=== PATIENT | male | born 1980 | race Caucasian/White ===

== ENCOUNTER 2021-06-04 08:00 | Outpatient (CLI) | payer OTHER, SELFPAY ==
[2021-06-04 08:25] VITALS: BP 121/79; PULSE 65; RESP 18; TEMP 36.7; O2SAT 96; BMI 23.1
[2021-06-04 09:10] VITALS: BP 111/78; PULSE 55; RESP 17; O2SAT 99
[2021-06-04 10:20] VITALS: BP 108/74; PULSE 62; RESP 17; TEMP 36.6; O2SAT 99
== END 2021-06-04 08:01 | disposition home or self-care (01) ==
PROVIDERS: PCP Family Medicine; Visit Provider Obstetrics & Gynecology
DX: U07.1 COVID-19 (principal)
CPT/HCPCS: 96365

== ENCOUNTER 2025-01-27 07:20 | Day surgery (SDC) | payer OTHER, SELFPAY ==
[2025-01-27] VITALS (7 sets, daily range): BP systolic 113–212; BP diastolic 56–91; PULSE 50–64; RESP 16–18; TEMP 35.8–36.4; O2SAT 96–100; BMI 25.7
[2025-01-27] MEDS: sodium chloride 0.9% 1,000 ML 30 ML IV (07:55)
[2025-01-27] MEDS: acetaminophen 1,000 MG/100 ML PIGGYBACK 400 MG IV (07:55)
[2025-01-27] MEDS: gabapentin 300 mg Capsule PO (07:56)
--- NOTE | 2025-01-27 08:03 | ANES.PREANE2 ---
Pre-Anesthetic Assessment Height/Weight: Height 1.88 m Weight 90.718 kg O2 Del Method Room Air 01/27/25 07:37 Preop Diagnosis: Right foot fourth digit proximal phalanx fracture Operation Date: 01/27/25 08:50 Proposed Procedures p ORIF right fourth digit proximal phalanx fracture(Right) - Phil Malone DPM Familial anesthetic complications: None Was Beta Enedina taken within 24 hours: N/A Last intake: Intake Last Liquid Date 01/26/25 Last Liquid Time 20:00 Last Solid Date 01/26/25 Last Solid Time 20:00 Social No alcohol and No tobacco Exam alert, oriented x 3, clear to auscultation bilaterally and regular rate & rhythm Airway Dentition: chipped (Front tooth chipped and fixed) and other (missing) Anesthetic Plan ASA status: 1 Anesthesia: MAC Risk of > 500 ml blood loss (7ml/kg in children): No Medications/Allergies Home Medications ?Medication ?Instructions ?Recorded ?Confirmed ?Last Taken ?Type fluticasone propionate 50 1 spray intranasal DAILY 01/21/25 01/24/25 01/25/25 History mcg/actuation nasal spray,suspension (Flonase Allergy Relief) ibuprofen 200 mg tablet (Advil) 200 mg PO Q6H PRN Pain 01/21/25 01/24/25 01/25/25 History loratadine 10 mg chewable tablet 10 mg PO DAILY 01/21/25 01/24/25 01/25/25 History (Claritin) Allergies Allergy/AdvReac Type Severity Reaction Status Date / Time No Known Allergies Allergy Unverified 01/27/25 07:29 Current Medications Generic Name Dose Route Start Last Admin Trade Name Freq PRN Reason Stop Dose Admin Sodium Chloride 1,000 mls @ 30 mls/hr 01/27/25 08:00 01/27/25 07:55 Sodium Chloride 0.9% IV 01/28/25 07:59 30 mls/hr .Q24H LY Administration PFS Anesthesia Social History (Updated 01/24/25 @ 10:37 by Reanna Lloyd RN) Smoking and tobacco/nicotine status: never used tobacco/nicotine Second hand smoke exposure: No Alcohol intake: current Alcohol intake frequency: few times a week Alcohol type: beer Substance/Drug Use: never Lives independently: No Household members: spouse Marital status: Number of children: 4 Data Anesthesia Cardiac Studies: No Data to Display
--- NOTE | 2025-01-27 09:03 | W.PM.OPSUD ---
Surgery/Procedure H&P Update DATE OF PROCEDURE: January 27, 2025 DATE H&P PERFORMED: 01/21/25 PREOP DIAGNOSIS: Right foot fourth digit proximal phalanx fracture PLANNED PROCEDURE: Operation Date: 01/27/25 08:50 Proposed Procedures p ORIF right fourth digit proximal phalanx fracture(Right) - Phil Malone DPM
[2025-01-27] MEDS: ceFAZolin 2,000 mg SDV 2000 MG IVP (09:15)
[2025-01-27] MEDS: BUPivacaine 0.5% INJ 30 mL XX (09:24)
--- NOTE | 2025-01-27 09:43 | PM.OP ---
Operative Report Date of procedure: January 27, 2025 Surgeon: Phil Malone DPM Procedure: Date of procedure: 01/27/2025 Pre-op diagnosis: Right foot fourth digit proximal interphalangeal joint fracture dislocation Post-op diagnosis: Same Post-op findings: Fracture of the proximal phalanx right foot fourth digit with dislocation Procedure done: Closed reduction percutaneous pinning right foot fourth digit CPT 06169 Implants: 0.045 K wire Specimens removed: None Surgeon: Dr. Phil Malone DPM Pmp Certified Project Manager: Jose Estimated blood loss: 1 cc Tourniquet time: No tourniquet used Complications: None Patient is a 44-year-old male that has a history of right foot correction.. The patient has had the aforementioned chief complaint for some time. Conservative treatment measures have been attempted and the patient has opted for surgical intervention at this time. A lengthy discussion regarding the procedure, including risks and complications has been had with the patient and is noted in the recent clinic note. Written and verbal consent have been obtained. All patient questions have been answered to the patient?s satisfaction. No written or verbal guarantees have been given or implied. The patient has been NPO since midnight. The history has been reviewed and the history and physical is current. The signed consent was confirmed and placed in the patient chart. Patient imaging has been reviewed and is consistent with the diagnosis. Under mild sedation, the patient was brought into the operating room and placed on the table in the supine position. IV antibiotics were given by the anesthesia team as preoperative surgical prophylaxis. MAC sedation was then performed by the anesthesiateam. A local field block was performed using 0.5% Marcaine plain A pneumatic tourniquet was then placed about the right ankle but was not inflated.. The operative extremity was then prepped and draped in the usual fashion. After prep, the following procedure was performed. Attention was directed to the right foot. Under direct fluoroscopy visualization the right foot fourth digit proximal phalanx fracture was closed reduced to appropriate anatomic position. A 0.045 K wire was then driven into the distal aspect of the digit across the fracture site to maintain appropriate anatomic position. Good position of the wire was noted clinically as well as on C-arm imaging. 4 x 4 gauze Kerlix and Lele bandage were used to dress the right foot. Patient was placed into a cam boot. The patient tolerated the procedure and anesthesia well and without complication. The patient was transported from the operating room to the recovery room with vital signs stable and vascular status intact to all digits of the right foot. The patient was given both written and verbal instructions to remain weightbearing as tolerated in cam boot to the operative extremity, to keep dressings/splint clean, dry and intact and to take pain medication as directed. The patient will follow-up in the outpatient setting at their scheduled appointment. The patient was discharged with my personal number and was instructed to call if any questions or issues should arise. They were discharged home once anesthesia criteria was met.
--- NOTE | 2025-01-27 09:47 | P.BOP_ITS ---
Date of procedure: 01/27/2025 Pre-op diagnosis: Right foot fourth digit proximal interphalangeal joint fracture dislocation Post-op diagnosis: Same Post-op findings: Fracture of the proximal phalanx right foot fourth digit with dislocation Procedure done: Closed reduction percutaneous pinning right foot fourth digit Implants: 0.045 K wire Specimens removed: None Surgeon: Dr. Phil Malone DPM Medicare Compliance Auditor: Jose Estimated blood loss: 1 cc Tourniquet time: No tourniquet used Complications: None
--- NOTE | 2025-01-27 10:25 | ANE.PACU2 ---
Inpatient post-anesthesia follow up: Airway intact: Yes Vital signs: Temperature 96.5 F Pulse Rate 53 Respiratory Rate 16 Blood Pressure 212/89 Pulse Oximetry 100 Oxygen Delivery Me thod Room Air Oxygen Flow Rate Fraction of Inspir ed Oxygen Hydration adequate: Yes Nausea and vomiting: No Pain level: 1 Mental status: Baseline
--- NOTE | 2025-01-27 16:15 | XR_ITS ---
WS: [id number] C-ARM RADIOGRAPHS RIGHT TOE; 2 IMAGES HISTORY: ARELY PICS COMPARISON: None available. Intraoperative imaging during pinning of the fourth toe. XR/XR toe RT min 2V [id number] IMPRESSION: Intraoperative imaging pinning fourth toe.
== END 2025-01-27 10:27 | disposition home or self-care (01) ==
PROVIDERS: PCP Family Medicine; Visit Provider Podiatrist Foot & Ankle Surgery
PROC: (CPT 28515; principal; 2025-01-27 08:40)
DX: S92.511A Displaced fracture of proximal phalanx of right lesser toe(s), initial encounter for closed fracture (principal); W22.8XXA Striking against or struck by other objects, initial encounter
CPT/HCPCS: 28515; 28899; 73660; 76000; C1713; J0131; J0690; J1200; J2250; J2704; J3010; J3490; J7030; J9999

== ENCOUNTER → 2025-02-10 15:02 | Outpatient (BNVA) | payer OTHER, SELFPAY | PROVIDERS: PCP Family Medicine; Visit Provider Podiatrist Foot & Ankle Surgery | DX: M79.671 Pain in right foot (principal) | CPT/HCPCS: 73630 ==

== ENCOUNTER → 2025-02-25 16:03 | Outpatient (BNVA) | payer OTHER, SELFPAY | PROVIDERS: PCP Family Medicine; Visit Provider Podiatrist Foot & Ankle Surgery | DX: M79.671 Pain in right foot (principal); S92.514D Nondisplaced fracture of proximal phalanx of right lesser toe(s), subsequent encounter for fracture with routine healing; X58.XXXD Exposure to other specified factors, subsequent encounter | CPT/HCPCS: 73630 ==

== ENCOUNTER 2025-03-26 16:02 | Outpatient (CLI) | payer OTHER, SELFPAY ==
--- NOTE | 2025-03-26 16:06 | CTR_ITS ---
PROCEDURE INFORMATION: Exam: CT Abdomen And Pelvis Without Contrast Exam date and time: 03/26/2025 4:14 PM Age: 45 years old Clinical indication: Abdominal pain; Left upper quadrant (luq); Prior surgery; Surgery date: 6+ months; Surgery type: Kidney stone removal, patient doesn't remember what side; Left flank pain since about 3 yesterday; Additional info: Left flank pain, unspecified abdominal pain TECHNIQUE: Imaging protocol: Computed tomography of the abdomen and pelvis without contrast. Radiation optimization: All CT scans at this facility use at least one of these dose optimization techniques: automated exposure control; mA and/or kV adjustment per patient size (includes targeted exams where dose is matched to clinical indication); or iterative reconstruction. COMPARISON: No relevant prior studies available. RADIATION DOSE METRICS: Total DLP (mGy-cm): 492.37 FINDINGS: Liver: Normal. No mass. Gallbladder and biliary ducts: Normal. No calcified stones. No ductal dilation. Pancreas: Normal. No ductal dilation. Spleen: Normal. No splenomegaly. Adrenal glands: Normal. No mass. Kidneys and ureters: There is mild hydronephrosis on the left with a 5 mm proximal left ureteral calculus. Two adjacent stones in the lower pole of the right kidney measure 2-3 mm. Stomach and bowel: Unremarkable. No obstruction. No mucosal thickening. Appendix: No evidence of appendicitis. Intraperitoneal space: Unremarkable. No free air. No significant fluid collection. Vasculature: Unremarkable. No abdominal aortic aneurysm. Lymph nodes: Unremarkable. No enlarged lymph nodes. Urinary bladder: Unremarkable as visualized. Reproductive: Unremarkable as visualized. Bones/joints: Unremarkable. No acute fracture. Soft tissues: Unremarkable. CT/CT kidney stone 17801 IMPRESSION: 1. Mild left hydronephrosis secondary to a 5 mm calculus in the proximal left ureter. 2. Small right renal stones without right hydronephrosis.
== END 2025-03-26 16:03 | disposition home or self-care (01) ==
LOC: RAD 16:03
PROVIDERS: PCP Physician Assistant; Visit Provider Physician Assistant
DX: N20.0 Calculus of kidney (principal); N13.30 Unspecified hydronephrosis; N28.1 Cyst of kidney, acquired; N20.1 Calculus of ureter
CPT/HCPCS: 74176